=== PATIENT | male | born 1975 ===

== ENCOUNTER 2022-01-06 07:47 | Day surgery (SDC) | payer BC, OTHER ==
[~2022-01-06] VITALS: Ht 177.8 cm; Wt 88.5 kg
[~2022-01-06 07:47] MED LIST: AMOX-97 PO; CPR500T PO; DIPH25TA82 PO; EPIN0.3P2 IM; METH4TAB PO; PNT40TEC PO; RNT150T PO; SCR1T1 PO; probiotic
[2022-01-06] MEDS ORDERED: LACTATED RINGERS 1,000 ML IV STA (07:59)
[2022-01-06 08:00] VITALS: BP 133/79
[2022-01-06] MEDS ORDERED: HURRICAINE EXT TUBE (BENZOCAINE) XX PRN (08:00)
[2022-01-06] MEDS ORDERED: LACTATED RINGERS 1,000 ML IV ONE (08:02)
[2022-01-06] MEDS ORDERED: MIDAZOLAM 2 MG/2 ML (VERSED) VIAL ONE (08:28)
[2022-01-06] MEDS ORDERED: PROPOFOL INJECTION 50 ML IV ONE (08:28)
--- NOTE | 2022-01-06 09:15 | Discharge Inst-Simple/Standard ---
Discharge Inst-Standard Patient Instructions/Follow Up Plan of Care/Instructions/FU: f/u [address] Morrissey Activity as Tolerated: Yes Discharge Diet: No Restrictions, Other Diet (gastritis diet) KEILA MORRISSEY DO Jan 06, 2022 09:15
[2022-01-06 09:18] VITALS: BP 104/58
[2022-01-06 09:23] VITALS: BP 110/65
[2022-01-06 09:28] VITALS: BP 115/72
[2022-01-06 09:30] VITALS: BP 115/72
[2022-01-06 10:00] VITALS: BP 115/72
--- NOTE | 2022-01-06 14:22 | OPERATIVE REPORT ---
DATE OF SERVICE: 01/06/2022 PREOPERATIVE DIAGNOSES: Epigastric abdominal pain, history of Helicobacter pylori, screening colonoscopy. POSTOPERATIVE DIAGNOSES: Slight gastritis, history of previous hiatal hernia repair, normal colon. PROCEDURES: EGD with biopsies, colonoscopy. SURGEON: Keila Morrissey DO ANESTHESIA: Per [employer] WORK[employer]. ESTIMATED BLOOD LOSS: None. COMPLICATIONS: None. INDICATIONS: The patient is a 46-year-old male with epigastric abdominal pain, history of Helicobacter pylori and needing screening colonoscopy understands risks and benefits of procedure and wishes to proceed. Consent was signed in chart. DESCRIPTION OF PROCEDURE: The patient was taken to the endoscopy suite, placed in left lateral recumbent position. A timeout was performed. Scope was inserted in the mouth, down the esophagus, stomach and into the duodenum without difficulty. No polyps, masses or ulcerations within the duodenum. Scope was slowly retracted back into stomach, where it was further insufflated. Slight gastritis appearance. Biopsy antrum and body were obtained. Scope was retroflexed noting no evidence of previous . No other pathology. Scope was returned to its normal position and slowly withdrawn through the distal esophagus. Biopsy of the GE junction was obtained. No polyps, masses or ulcerations. Scope was slowly retracted back to completely remove. Digital rectal exam was performed. No palpable polyps, masses or ulcerations. Scope was inserted in the rectum and advanced all the way to the cecum with minimal difficulty. Prep was adequate. Scope was then slowly retracted back. No polyps, masses, ulcerations on the cecum, ascending, transverse, descending and sigmoid colon. Once in the rectum, scope was retroflexed and no other pathology. Scope was returned to its normal position and slowly withdrawn to completely remove. The patient tolerated the procedure well without complications, taken to recovery in stable condition. RECOMMENDATIONS: The patient will follow up in 2 weeks to discuss pathology results. Further recommendations pending those biopsies. He will need repeat colonoscopy in 10 years unless family history of colon cancer, which would then be 5 years, any problems before that would need repeat colonoscopy. Job ID: [id number] DocumentID: [id number] Dictated Date: 01/06/2022 09:21:30 [employer] Cooking Operator Date: 01/06/2022 14:20:00 Dictated By: KEILA MORRISSEY DO
--- NOTE | 2022-01-06 14:36 | Anesthesia-General Post-Op ---
MAC Patient Condition Mental Status/LOC: Same as Preop Cardiovascular: Satisfactory Nausea/Vomiting: Absent Respiratory: Satisfactory Pain: Controlled Complications: Absent Post Op Complications Complications None Follow Up Care/Instructions Patient Instructions None needed. Anesthesiology Discharge Order Discharge Order Patient is doing well, no complaints, stable vital signs, no apparent adverse anesthesia problems. No complications reported per nursing. NEAL SEVILLA CRNA Jan 06, 2022 14:36
== END 2022-01-06 10:00 | disposition home or self-care (01) ==
LOC: ENDO 07:47
PROVIDERS: ATTEND Surgery
DX: Z12.11 Encounter for screening for malignant neoplasm of colon (principal); K21.00 Gastro-esophageal reflux disease with esophagitis, without bleeding; K31.89 Other diseases of stomach and duodenum; Z87.891 Personal history of nicotine dependence; K42.9 Umbilical hernia without obstruction or gangrene; Z86.19 Personal history of other infectious and parasitic diseases